=== PATIENT | female | born 1990 | race Caucasian/White ===

== ENCOUNTER 2024-04-26 13:54 | Emergency (ER) | payer OTHER, SELFPAY ==
[2024-04-26 14:17] VITALS: BP 130/75; PULSE 76; RESP 18; TEMP 37; O2SAT 100; BMI 22.6
[2024-04-26 15:14] LABS: Add Manual Diff / Slide Review NO; Basophils Absolute Auto 100 /uL (0-100); Basophils Percent Auto 0.8 % (0-2); Eosinophils Absolute Auto 100 /uL (0-450); Eosinophils Percent Auto 1.4 % (2-4); Hematocrit 39.8 % (36-46); Hemoglobin 13.9 g/dL (12.0-16.0); Lymphocytes Absolute Auto 2000 /uL (1100-4500); Lymphocytes Percent Auto 24.8 % (25-40); Mean Corpuscular HGB Conc 34.8 % (30-36); Mean Corpuscular Volume 91.8 fL (80-100); Monocytes Absolute Auto 500 /uL (0-900); Monocytes Percent Auto 5.7 % (3-14); Neutrophils Absolute Auto 5600 /uL (1500-7000); Neutrophils Percent Auto 67.3 % (50-75); Platelet Count 198 X10^3/uL (150-400); Red Blood Cell Count 4.33 X10^6/uL (4.0-5.2); White Blood Cell Count 8.3 X10^3/uL (4.5-11.0)
[2024-04-26 15:26] LABS: Alanine Aminotransferase 27 IU/L (<35); Albumin 5.1 g/dL (3.5-5.0); Albumin Globulin Ratio 1.7 (1.0-2.8); Alkaline Phosphatase 41 U/L (38-126); Aspartate Aminotransferase 37 IU/L (14-36); BUN Creatinine Ratio 27.2 (6-22); Bilirubin Total 0.6 mg/dL (0.2-1.3); Blood Urea Nitrogen 22 mg/dL (7-17); Calcium 9.7 mg/dL (8.4-10.2); Carbon Dioxide 27 mmol/L (22-32); Chloride 101 mmol/L (98-107); Estimated Glomerular Filt Rate > 60 mL/min (>60); Glucose 112 mg/dL (70-100); HEMOLYSIS < 15 (0-50); Lipase 67 U/L (23-300); Potassium 3.8 mmol/L (3.4-5.1); Sodium 137 mmol/L (137-145); Total Protein 8.1 g/dL (6.3-8.2)
--- NOTE | 2024-04-26 16:11 | ED.ABDPAIN ---
HPI - Abdominal Pain General Chief Complaint: Abdominal Pain Stated Complaint: Stomach pain , Dizziness Time Seen by Provider: 04/26/24 14:59 Source: patient Mode of arrival: Ambulatory History of Present Illness HPI narrative: Patient with history of PCOS in her teenage years. Has not been a problem since then. However in the past 1 month has had lower bilateral abdominal tightness bloating discomfort in the pelvis. No urinary complaints. Denies . No vomiting. Has had decreased appetite. No family history ovarian cancer. No night sweats or weight loss. Patient does have history of hernia repair and appendectomy. Related Data Allergies Allergy/AdvReac Type Severity Reaction Status Date / Time No Known Drug Allergies Allergy Verified 04/26/24 14:17 Review of Systems Review of Systems Narrative: GENERAL: Negative chills, fatigue, malaise, fever, sweats. HEENT: Negative sinus pain, ear pain, sore throat RESPIRATORY: Negative dyspnea, cough CARDIOVASCULAR: Negative chest pain, palpitations GASTROINTESTINAL: Negative vomiting, nausea, positive abdominal pain : Negative dysuria, frequency, hematuria MUSCULOSKELETAL: Negative muscle or bony pain SKIN: Negative rash, skin lesions NEUROLOGIC: Negative weakness, numbness ROS Unobtainable: All systems reviewed & are unremarkable except as noted in HPI and below Patient History Social History Smoking Status: Never smoker Smoking Status: Never smoker Exam Narrative Exam Narrative: GENERAL: in no distress, not toxic not dyspneic HEAD: Normocephalic. EYES: Pupils equal round ENT: Mucous membranes moist. NECK: Trachea midline. CARDIOVASCULAR: Regular rate and rhythm RESPIRATORY: Clear to auscultation. Breath sounds equal bilaterally. No wheezes, rales, or rhonchi. GASTROINTESTINAL: Abdomen soft, non-tender abdomen is soft flat nontender no peritoneal signs no pain out of portion exam. No guarding no rebound. Bowel sounds are present. No CVA tenderness. EXTREMITIES: No gross deformities. BACK: No flank tenderness. NEURO: AOx4. Clear speech SKIN: Warm and dry PSYCH: Not anxious, is cooperative Initial Vital Signs Initial Vital Signs: Vital Signs Temperature 98.6 F 04/26/24 14:17 Pulse Rate 76 04/26/24 14:17 Respiratory Rate 18 04/26/24 14:17 Blood Pressure 130/75 04/26/24 14:17 Pulse Oximetry 100 04/26/24 14:17 Oxygen Delivery Method Room Air 04/26/24 14:17 Course Orders Ordered: Discontinued Medications Ondansetron HCl (Ondansetron 4 Mg/2 Ml Inj) 4 mg IV NOW PRN PRN Reason: Nausea And Vomiting Ondansetron HCl (Ondansetron 4 Mg Odt) 4 mg PO NOW PRN PRN Reason: Nausea And Vomiting Sodium Chloride (Sodium Chloride 0.9% Flush) 50 ml IV NOW ONE Stop: 04/26/24 16:12 Last Admin: 04/26/24 16:46 Dose: 50 ml Documented By: KENDY Vital Signs Vital signs: Vital Signs - 8 hr 04/26/24 14:17 04/26/24 16:46 04/26/24 16:47 Temperature 98.6 F Pulse Rate 76 81 80 Respiratory Rate 18 Blood Pressure 130/75 Pulse Oximetry 100 100 100 Oxygen Delivery Method Room Air Room Air 04/26/24 16:47 Temperature Pulse Rate Respiratory Rate Blood Pressure 124/63 Pulse Oximetry Oxygen Delivery Method MDM - Abdominal Pain Lab Data 04/26/24 14:46 04/26/24 14:46 Labs: Lab Results 04/26/24 Range/Units 14:46 WBC 8.3 (4.5-11.0) X10^3/uL RBC 4.33 (4.0-5.2) X10^6/uL Hgb 13.9 (12.0-16.0) g/dL Hct 39.8 (36-46) % MCV 91.8 (80-100) fL MCH 32.0 (26-34) PG MCHC 34.8 (30-36) % RDW 13.0 (11.6-14.8) % Plt Count 198 (150-400) X10^3/uL Neut % (Auto) 67.3 (50-75) % Lymph % (Auto) 24.8 L (25-40) % [place] % (Auto) 5.7 (3-14) % Eos % (Auto) 1.4 L (2-4) % Baso % (Auto) 0.8 (0-2) % Neut # (Auto) 5600 (3783-7869) /uL Lymph # (Auto) 2000 (2244-7809) /uL [place] # (Auto) 500 (0-900) /uL Eos # (Auto) 100 (0-450) /uL Baso # (Auto) 100 (0-100) /uL Sodium 137 (137-145) mmol/L Potassium 3.8 (3.4-5.1) mmol/L Chloride 101 (98-107) mmol/L Carbon Dioxide 27 (22-32) mmol/L BUN 22 H (7-17) mg/dL Creatinine 0.81 (0.52-1.04) mg/dL Estimated GFR > 60 (>60) mL/min BUN/Creatinine Ratio 27.2 H (6-22) Glucose 112 H (70-100) mg/dL Calcium 9.7 (8.4-10.2) mg/dL Total Bilirubin 0.6 (0.2-1.3) mg/dL AST 37 H (14-36) IU/L ALT 27 (<35) IU/L Alkaline Phosphatase 41 (38-126) U/L Total Protein 8.1 (6.3-8.2) g/dL Albumin 5.1 H (3.5-5.0) g/dL Globulin 3.0 (1.7-4.1) g/dL Albumin/Globulin Ratio 1.7 (1.0-2.8) Lipase 67 (23-300) U/L Point of care testing: Point of Care Testing Test Results Negative Urine Dip Bedside Urine Glucose Negative Bedside Urine Bilirubin - Negative Bedside Urine Ketone - Negative Urine Specific [place] 1.010 Bedside Urine Occult Blood - Negative Bedside Urine pH 7.0 Bedside Urine Protein - Negative Bedside Urine Urobilinogen +/- 1mg Bedside Urine Nitrite - Negative Bedside Urine Leukocytes - Negative Esterase Imaging Data CT scan - abdomen/pelvis: Radiologist's Impression: [address] [address] [address] Scan Report Signed Patient: Kaylene Horton MR#: [id number] : 1990 Acct:[id number] Age/Sex: 33 / F Date of Service: 04/26/24 Loc: ED Accession Number: [id number] Procedure: CT abdomen pelvis w con Ordering Provider: Ruben Mason MD PROCEDURE: CT ABDOMEN PELVIS W CON INDICATIONS: IV contrast only/lower abdominal pain TECHNIQUE: After the administration of intravenous contrast, axial sections acquired from the lung bases to the pubic symphysis. Coronal and sagittal reformats were performed. For radiation dose reduction, the following was used: automated exposure control, adjustment of mA and/or kV according to patient size. COMPARISON: None. FINDINGS: Image quality: Diagnostic. Lower Chest: No significant findings. ABDOMEN: Liver: No solid mass. Gallbladder: No radiopaque gallstones or wall thickening. Biliary ducts: No biliary dilation. Pancreas: No ductal dilation. Spleen: Size is within normal limits. Adrenal Glands: No adrenal nodules. Kidneys and Ureters: No hydronephrosis. No solid mass. No complex renal cystic lesion which requires follow up. Stomach and Bowel: Postsurgical changes are noted in right lower quadrant with intact surgical anastomosis. No bowel obstruction or abnormal bowel wall thickening. No mesenteric fat stranding. Moderate fecal stasis in the colon is seen. No abscess collection. Peritoneum: No abnormal intraperitoneal fluid. No free air. Ventral Wall: No significant ventral hernia. Abdominal Nodes: No retroperitoneal or mesenteric adenopathy by size criteria. Vessels: Aorta and inferior vena cava are normal in size. PELVIS: Pelvic Organs: Likely physiologic amount of fluid is seen in lower pelvis. Simple appearing cyst is seen in left ovary measures 1.6 x 2 cm in size. No abnormality is seen in the uterus and right ovary. Bladder: No bladder wall thickening, accounting for underdistention. Pelvic Nodes: No enlarged lymph nodes. Miscellaneous: No inguinal hernias are seen. Bones: No aggressive osseous abnormality. IMPRESSION: 1. Postsurgical changes in right lower quadrant which may indicate prior appendectomy. No abnormal bowel wall thickening. [id number] constipation. No abscess collection. No peritoneal free air. 2. Likely physiologic amount of fluid in lower pelvis. Simple cyst in left ovary as above. 3. No obstructing renal stones or hydronephrosis. Dictated by: Juan Francisco Kaufman M.D. on 04/26/2024 at 17:04 Approved by: Juan Francisco Kaufman M.D. on 04/26/2024 at 17:06 [facility] Narrative Medical decision making narrative: Patient with history of PCOS in her teenage years. Has not been a problem since then. However in the past 1 month has had lower bilateral abdominal tightness bloating discomfort in the pelvis. No urinary complaints. Denies . No vomiting. Has had decreased appetite. No family history ovarian cancer. No night sweats or weight loss. Patient does have history of hernia repair and appendectomy. After history and exam, CBC CMP urinalysis test CT abdomen pelvis [facility] Medical records reviewed: No recent visit for this complaint Differential considered: Includes but not limited to bowel obstruction ovarian cyst ovarian cancer cystitis colitis Lab Test results independently reviewed as above. Pertinent findings: WBC 8.3 hemoglobin 13.9 hematocrit 13.8 sodium 137 potassium 3.8 BUN 22 creatinine 0.81 glucose 112 negative urine negative leukocyte esterase negative nitrate Imaging studies independently reviewed: CT abdomen pelvis no acute finding Consultations: None indicated at this time Treatments: None indicated at this time Re-evaluations: 5:30 p.m.. Updated patient results. They are reassuring. Exam is reassuring. Reviewed with her will need follow up with primary care and possible outpatient pelvic ultrasound but none indicated at this time. Referral for General surgery provided as well for possible outpatient colonoscopy. Patient agrees with treatment plan. She is happy with results. She desires discharge home Discussion: Appropriate for discharge home. Exam is reassuring laboratory studies imaging reassuring. No prescriptions indicated at this time. No pelvic exam or pelvic ultrasound indicated at this time. No vaginal complaints. She desires discharge home Diagnosis: Abdominal pain Discharge Plan Departure Patient Disposition: Home Clinical Impression: Abdominal pain Qualifiers: Abdominal location: lower abdomen, unspecified Qualified Code(s): R10.30 - Lower abdominal pain, unspecified Instructions: DI for Abdominal Pain-Adult Activity Restrictions/Additional Instructions: Your exam and laboratory studies are reassuring. No prescriptions are indicated this time. However please do follow up with your family doctor for possible outpatient pelvic ultrasound. Please call provided general surgery office for follow up regarding your ongoing abdominal pain, you may need outpatient colonoscopy. Return if worse if any questions or concerns Referrals: Brian Ayoub MD [Physician] - Stand Alone Forms: Patient Portal/API/Survey
[2024-04-26 16:46] VITALS: PULSE 81; O2SAT 100
[2024-04-26] MEDS: SODIUM CHLORIDE 0.9% FLUSH 50 ML IV (16:46)
[2024-04-26 16:47] VITALS: BP 124/63; PULSE 80; O2SAT 100
[2024-04-26 17:43] VITALS: BP 109/60; PULSE 94; RESP 16; O2SAT 98
== END 2024-04-26 17:45 | disposition home or self-care (01) ==
PROVIDERS: Emergency Provider Emergency Medicine
DX: R10.30 Lower abdominal pain, unspecified (principal); R14.0 Abdominal distension (gaseous); Z87.19 Personal history of other diseases of the digestive system
CPT/HCPCS: 36415; 74177; 80053; 81003; 81025; 83690; 85025; 96374; 99284